=== PATIENT | female | born 1995 | race Hispanic/Latino ===

== ENCOUNTER 2022-07-27 21:25 | Emergency (ER) | payer OTHER ==
[~2022-07-27] VITALS: Ht 172.7 cm; Wt 93.4 kg
[2022-07-27 22:21] VITALS: BP 167/77
== END 2022-07-27 22:21 | disposition left against medical advice (07) ==
LOC: FSED 21:30
DX: O13.3 Gestational [pregnancy-induced] hypertension without significant proteinuria, third trimester (principal)
CPT/HCPCS: 99282